=== PATIENT | male | born 1960 | race Hispanic/Latino ===

== ENCOUNTER 2021-09-23 06:15 | Day surgery (SDC) | payer BC ==
[2021-09-17 11:14] LABS: BASOPHILS % (AUTO) 0.7 % (0.0-5.0); EOSINOPHILS % (AUTO) 2.5 % (0.0-8.0); HEMATOCRIT 40.5 % (42-54); LYMPHOCYTES % (AUTO) 23.5 % (21.0-51.0); MEAN CORPUSCULAR HEMOGLOBIN 28.5 pg (27.0-33.0); MEAN CORPUSCULAR HGB CONC 33.6 g/dL (32.0-36.0); MEAN CORPUSCULAR VOLUME 84.7 fL (79-99); MONOCYTES % (AUTO) 11.4 % (3.0-13.0); NEUTROPHILS % (AUTO) 61.5 % (40.0-77.0); PLATELET COUNT (AUTO) 199 K/uL (130-400); RED BLOOD CELL COUNT(AUTO) 4.78 MIL/uL (4.50-6.20); RED CELL DISTRIBUTION WIDTH 12.6 % (11.0-15.5); WHITE BLOOD COUNT (AUTO) 5.6 K/uL (4.8-10.8)
[2021-09-17 11:35] LABS: CREATININE 1.6 mg/dL (0.5-1.5); POTASSIUM 4.2 mmol/L (3.5-5.1)
[2021-09-18] MEDS: CEFAZOLIN SODIUM 1 GM VIAL IVP SCH (10:30)
[2021-09-22 12:55] VITALS: BP 139/82
[2021-09-23] VITALS (12 sets, daily range): BP systolic 105–144; BP diastolic 65–85
[~2021-09-23] VITALS: Ht 170.2 cm; Wt 95.3 kg
[~2021-09-23 06:15] MED LIST: AEC81 PO; AMLO-259 PO; BRIM15OS OS; CARV12.511 PO; OMEP20CA12 PO; ROSU5TAB PO
[2021-09-23] MEDS ORDERED: MIDAZOLAM HCL 1 MG/ML 2ML VIAL ONE (07:53)
[2021-09-23] MEDS ORDERED: LIDOCAINE PF 100MG/5ML (2%) SYRINGE 5ML ONE (07:53)
[2021-09-23] MEDS ORDERED: PROPOFOL 10 MG/ML 20ML VIAL IV ONE (07:53)
[2021-09-23] MEDS ORDERED: LACTATED RINGERS 1000ML 1,000 ML IV ONE (07:54)
[2021-09-23] MEDS ORDERED: FENTANYL CITRATE PF 50 MCG/1 ML 2ML VIAL ONE (07:57)
[2021-09-23] MEDS ORDERED: DEXAMETHASONE SOD PHOSPHATE 10MG/ML 1ML VIAL ONE (08:05)
[2021-09-23] MEDS: CEFAZOLIN SODIUM 1 GM VIAL IVP SCH (08:08)
[2021-09-23] MEDS ORDERED: ONDANSETRON 4MG INJ ONE (08:15)
[2021-09-23] MEDS ORDERED: EPHEDRINE SULFATE 50 MG/ML AMPULE ONE (08:17)
[2021-09-23] MEDS ORDERED: GLYCOPYRROLATE 1 MG/5 ML SYRINGE ONE (08:25)
[2021-09-23] MEDS ORDERED: DiphenhydrAMINE HCL 50 MG/ML VIAL ONE (08:49)
== END 2021-09-23 10:05 | disposition home or self-care (01) ==
LOC: DAH 06:15
PROVIDERS: ATTEND Orthopaedic Surgery
DX: M65.342 Trigger finger, left ring finger (principal); M65.332 Trigger finger, left middle finger; Z20.822 Contact with and (suspected) exposure to COVID-19; M13.841 Other specified arthritis, right hand; M22.41 Chondromalacia patellae, right knee; M75.92 Shoulder lesion, unspecified, left shoulder; I10 Essential (primary) hypertension; E78.5 Hyperlipidemia, unspecified; E78.00 Pure hypercholesterolemia, unspecified; E66.9 Obesity, unspecified; K21.9 Gastro-esophageal reflux disease without esophagitis; Z98.890 Other specified postprocedural states; Z79.82 Long term (current) use of aspirin; Z79.899 Other long term (current) drug therapy; Z80.3 Family history of malignant neoplasm of breast; Z80.42 Family history of malignant neoplasm of prostate; Z80.8 Family history of malignant neoplasm of other organs or systems; Z90.5 Acquired absence of kidney; Z98.42 Cataract extraction status, left eye; Z87.891 Personal history of nicotine dependence
CPT/HCPCS: 26055 ×2; 36415; 80048; 85025; 87635; 93005; A4215; A4221; A4222; A4223; A4649; A4663; A6223; A6260; C9803; J0690; J1100; J1200; J2001; J2250; J2405; J2704; J3010; J3490 ×2; J7120